=== PATIENT | male | born 1980 | race Caucasian/White ===

== ENCOUNTER 2019-10-29 17:33 | Emergency (ER) | payer OTHER ==
[2019-10-29 18:13] VITALS: BP 119/102
--- NOTE | 2019-10-29 18:30 | ER Document Report ---
HPI - HPI Time Seen by Provider: 10/29/19 18:19 Pain Level: Denies Context: Patient is a 39-year-old male who presents emergency department with a piece of a earbud headphones in his ear. Patient states that he got stuck in there just prior to arrival. He was trying to quickly remove his ear buds from his ears and the soft plastic part of his earbuds got stuck in his ear canal. He was unable to remove them. Patient was coming from the gym. Denies any dizziness, lightheadedness, blurred vision. Patient's blood pressure is elevated, but he states he just worked out. - ROS Systems Reviewed and Negative: Yes All other systems reviewed and negative - EENT EENT: REPORTS: Ear Pain - stuck earbud - NEURO Neurology: DENIES: Weakness, Vision blurred, Dizzinesss / Vertigo - MUSCULOSKELETAL Musculoskeletal: DENIES: Extremity pain - DERM Skin Color: Normal Skin Problems: None Past Medical History - General Information source: Patient - Social History Smoking Status: Former Smoker Family History: Reviewed & Not Pertinent Patient has suicidal ideation: No Patient has homicidal ideation: No Vertical Provider Document - CONSTITUTIONAL Agree With Documented VS: Yes Exam Limitations: No Limitations General Appearance: No Apparent Distress - INFECTION CONTROL TRAVEL OUTSIDE OF THE [place] IN LAST 30 DAYS: No - HEENT HEENT: Atraumatic, Normocephalic, PERRLA Notes: Headphone earbud noted in right ear. - RESPIRATORY Respiratory: Breath Sounds Normal, No Respiratory Distress - CARDIOVASCULAR Cardiovascular: Regular Rate, Regular Rhythm - NEURO Level of Consciousness: Awake, Alert, Appropriate Motor/Sensory: No Motor Deficit, No Sensory Deficit - DERM Integumentary: Warm, Dry, No Rash Course - Re-evaluation Re-evalutation: 10/29/19 18:30 The rubber part of the year but was removed from the patient's ears with alligator forceps. Patient's blood pressure is elevated, but the reason why his blood pressure is elevated is because he just went to the gym. Advised him to follow-up with his primary care doctor. He denies any pain. Patient tolerated the procedure well. Follow-up precautions were given. Verbal discharge instructions were given to the patient. They verbalized understanding. They are stable for discharge. - Vital Signs Vital signs: Temp Pulse Resp BP Pulse Ox 98.1 F 83 18 119/102 H 98 03/01/20 18:12 10/29/19 18:12 10/29/19 18:12 10/29/19 18:12 10/29/19 18:12 Discharge - Discharge Clinical Impression: Foreign body in ear Qualifiers: Encounter type: initial encounter Laterality: right Qualified Code(s): T16.1XXA - Foreign body in right ear, initial encounter Condition: Stable Disposition: HOME, SELF-CARE Additional Instructions: You were seen today in the emergency department for a piece of an earbud in your ear. It was removed here in the emergency department. Follow up with your primary care provider to have your blood pressure rechecked. Referrals: [facility] [Primary Care Provider] - Follow up as needed
== END 2019-10-29 18:43 | disposition home or self-care (01) ==
LOC: ER 17:33
DX: T16.1XXA Foreign body in right ear, initial encounter (principal); X58.XXXA Exposure to other specified factors, initial encounter
CPT/HCPCS: 99282